=== PATIENT | male | born 1955 | race Caucasian/White ===

== ENCOUNTER 2016-09-27 13:55 | Emergency (ER) | payer MEDICARE, OTHER ==
[~2016-09-27] VITALS: Ht 177.8 cm; Wt 83.9 kg
[~2016-09-27 13:55] MED LIST: ALPRAZOLAM0.5 MG PO; AMLODIPINE BESY10 MG PO; ASPIRIN EC325 MG PO; ASPIRIN325 MG PO; ASPIRIN81 MG PO; BISAC-EVAC10 MG PR; CAL-GEST200 MG PO; CARVEDILOL12.5 MG PO; CICLODAN6.6 ML TOP; CIPROFLOXACIN250 MG PO; CLINDAMYCIN HC300 MG PO; COUMADIN4 MG PO; DIAZEPAM5 MG PO; FORADIL1 INHALATI INH; GABAPENTIN100 MG PO; HYDROCODON-ACE1 EA10 PO; LANTUS100 UNITS/ SUB-Q; LISINOPRIL10 MG PO; LOPERAMIDE2 MG PO; METOCLOPRAMIDE10 MG PO; METOPROLOL SUCC25 MG PO; METOPROLOL SUCC50 MG PO; MILK OF MA400 MG/5 M PO; NEPHRO-VITE RX1 TAB PO; NICODERM CQ1 EAC2 TD; NIFEDICAL XL30 MG PO; OMEPRAZOLE20 MG PO; PERFOROMIS20 MCG/2 M INH; PHOSLO667 MG PO; RENA-VITE RX T1 EACH PO; RENAGEL800 MG PO; RENVELA800 MG PO; SENNA PLUS TAB1 EACH PO; SENSIPAR30 MG PO; TAMIFLU75 MG PO; TRAZODONE HCL50 MG PO; TYLENOL325 MG PO; VALIUM5 MG PO; VITAMIN D400 UNI4 PO; VITAMIN D5000 UNIT PO
[2016-12-12] MEDS ORDERED: NEURONTIN300 MG PO (21:50)
[2016-12-12] MEDS ORDERED: GLUCAGON EMERGEN1 MG INJ (21:51)
[2016-12-12] MEDS ORDERED: MIRALAX17 GM PO (21:53)
[2016-12-12] MEDS ORDERED: CARVEDILOL12.5 MG PO ×2 (21:56→21:57)
== END 2016-09-27 15:14 | disposition home or self-care (01) ==
LOC: ED 13:55
DX: S51.012A Laceration without foreign body of left elbow, initial encounter (principal); I13.2 Hypertensive heart and chronic kidney disease with heart failure and with stage 5 chronic kidney disease, or end stage renal disease; E11.22 Type 2 diabetes mellitus with diabetic chronic kidney disease; N18.6 End stage renal disease; I50.9 Heart failure, unspecified; Z99.2 Dependence on renal dialysis; J44.9 Chronic obstructive pulmonary disease, unspecified; Z86.14 Personal history of Methicillin resistant Staphylococcus aureus infection; Z86.73 Personal history of transient ischemic attack (TIA), and cerebral infarction without residual deficits; Z88.0 Allergy status to penicillin; Z88.8 Allergy status to other drugs, medicaments and biological substances; Z79.899 Other long term (current) drug therapy; Z79.01 Long term (current) use of anticoagulants; Z79.82 Long term (current) use of aspirin; Z79.4 Long term (current) use of insulin; W22.8XXA Striking against or struck by other objects, initial encounter
CPT/HCPCS: 73080; 90471; 90715; 99283

== ENCOUNTER → 2016-12-12 | Emergency (ER) | payer MEDICARE, OTHER ==
[~2016-12-12] VITALS: Ht 177.8 cm; Wt 83.9 kg
[~2016-12-12] MED LIST changes: +GLUCAGON EMERGEN1 MG INJ; +MIRALAX17 GM PO; +NEURONTIN300 MG PO
== END ==
LOC: ED 20:19
DX: D17.21 Benign lipomatous neoplasm of skin and subcutaneous tissue of right arm (principal); E11.9 Type 2 diabetes mellitus without complications; I11.0 Hypertensive heart disease with heart failure; I50.9 Heart failure, unspecified; J44.9 Chronic obstructive pulmonary disease, unspecified; Z86.73 Personal history of transient ischemic attack (TIA), and cerebral infarction without residual deficits; Z86.14 Personal history of Methicillin resistant Staphylococcus aureus infection; Z87.891 Personal history of nicotine dependence; Z88.0 Allergy status to penicillin; Z88.8 Allergy status to other drugs, medicaments and biological substances; Z79.899 Other long term (current) drug therapy; Z79.4 Long term (current) use of insulin; Z79.01 Long term (current) use of anticoagulants
CPT/HCPCS: 73090; 99283

== ENCOUNTER 2017-01-07 21:10 | Emergency (ER) | payer MEDICARE, OTHER ==
[~2017-01-07] VITALS: Ht 177.8 cm; Wt 83.9 kg
== END 2017-01-07 23:30 | disposition home or self-care (01) ==
LOC: ED 21:10
DX: T82.838A Hemorrhage due to vascular prosthetic devices, implants and grafts, initial encounter (principal); I11.0 Hypertensive heart disease with heart failure; I50.9 Heart failure, unspecified; E11.9 Type 2 diabetes mellitus without complications; Z86.73 Personal history of transient ischemic attack (TIA), and cerebral infarction without residual deficits; Z86.14 Personal history of Methicillin resistant Staphylococcus aureus infection; Z99.81 Dependence on supplemental oxygen; Z98.890 Other specified postprocedural states; Z88.0 Allergy status to penicillin; Z88.8 Allergy status to other drugs, medicaments and biological substances; Z79.4 Long term (current) use of insulin; Z79.899 Other long term (current) drug therapy
CPT/HCPCS: 85025; 85610; 99283

== ENCOUNTER 2017-01-29 14:04 | Emergency (ER) | payer MEDICARE, OTHER ==
[~2017-01-29] VITALS: Ht 177.8 cm; Wt 83.9 kg
== END 2017-01-29 17:45 ==
LOC: ED 14:04
DX: T82.838A Hemorrhage due to vascular prosthetic devices, implants and grafts, initial encounter (principal); I13.2 Hypertensive heart and chronic kidney disease with heart failure and with stage 5 chronic kidney disease, or end stage renal disease; E11.22 Type 2 diabetes mellitus with diabetic chronic kidney disease; N18.6 End stage renal disease; I50.9 Heart failure, unspecified; J44.9 Chronic obstructive pulmonary disease, unspecified; Z86.73 Personal history of transient ischemic attack (TIA), and cerebral infarction without residual deficits; Z87.891 Personal history of nicotine dependence; Z88.0 Allergy status to penicillin; Z88.8 Allergy status to other drugs, medicaments and biological substances; Z79.899 Other long term (current) drug therapy; Z79.82 Long term (current) use of aspirin; Z79.01 Long term (current) use of anticoagulants; Z79.4 Long term (current) use of insulin
CPT/HCPCS: 85025; 99285

== ENCOUNTER 2017-02-08 14:12 | Emergency (ER) | payer MEDICARE, OTHER ==
[~2017-02-08] VITALS: Ht 177.8 cm; Wt 83.9 kg
== END 2017-02-08 15:52 | disposition home or self-care (01) ==
LOC: ED 14:12
DX: T82.838A Hemorrhage due to vascular prosthetic devices, implants and grafts, initial encounter (principal); I13.2 Hypertensive heart and chronic kidney disease with heart failure and with stage 5 chronic kidney disease, or end stage renal disease; E11.22 Type 2 diabetes mellitus with diabetic chronic kidney disease; N18.6 End stage renal disease; I50.9 Heart failure, unspecified; J44.9 Chronic obstructive pulmonary disease, unspecified; Z86.14 Personal history of Methicillin resistant Staphylococcus aureus infection; Z87.891 Personal history of nicotine dependence; Z90.89 Acquired absence of other organs; Z88.0 Allergy status to penicillin; Z88.8 Allergy status to other drugs, medicaments and biological substances; Z79.899 Other long term (current) drug therapy; Z79.4 Long term (current) use of insulin; Z79.01 Long term (current) use of anticoagulants; Z86.73 Personal history of transient ischemic attack (TIA), and cerebral infarction without residual deficits
CPT/HCPCS: 99282

== ENCOUNTER 2017-02-08 17:29 | Emergency (ER) | payer MEDICARE, OTHER ==
[~2017-02-08] VITALS: Ht 177.8 cm; Wt 83.9 kg
--- NOTE | 2017-02-08 18:47 | NUR ---
WAS CALLED IN FOR CODE BLUE. PT DID HAVE FAMILY PRESENT. I INFORMED THE FAMILY OF WHAT WAS GOING ON UNTIL THE PT WAS STABILIZED. FAMILY WAS THEN ALLOWED TO COME BACK INTO THE TRAUMA ROOM WITHT HE PT. PT'S FAMILY IS REQUESTING THAT THE PT BE TRANSFERED TO [facility] FOR CARE MOST OF HIS CARE IS TAKEN CARE OF THERE.
--- NOTE | 2017-02-09 13:22 | EKG ---
[facility] [address] [facility] [place] [address] Signed Normal sinus rhythm Normal ECG No previous ECGs available Confirmed by DILIP ROMERO MD ([id number]) on 02/09/2017 1:21:51 PM Electronically Signed By: DILIP ROMERO MD 02/09/17 1322 PATIENT NAME: TALISHA DING Electrocardiogram DATE OF : 55 PHYSICIAN: DILIP ROMERO MD REPORT #: [id number] REPORT IS CONFIDENTIAL AND NOT TO BE RELEASED WITHOUT AUTHORIZATION
== END 2017-02-08 21:07 | disposition short-term general hospital (02) ==
LOC: ED 17:29
PROC: 30230N1 Transfusion of Nonautologous Red Blood Cells into Peripheral Vein, Open Approach (ICD-10-PCS; principal; 2017-02-08)
DX: I46.9 Cardiac arrest, cause unspecified (principal); T82.838A Hemorrhage due to vascular prosthetic devices, implants and grafts, initial encounter; R79.89 Other specified abnormal findings of blood chemistry; I13.2 Hypertensive heart and chronic kidney disease with heart failure and with stage 5 chronic kidney disease, or end stage renal disease; E11.22 Type 2 diabetes mellitus with diabetic chronic kidney disease; N18.6 End stage renal disease; I50.9 Heart failure, unspecified; Z86.73 Personal history of transient ischemic attack (TIA), and cerebral infarction without residual deficits; Z86.14 Personal history of Methicillin resistant Staphylococcus aureus infection; Z87.891 Personal history of nicotine dependence; Z90.89 Acquired absence of other organs; Z88.0 Allergy status to penicillin; Z88.8 Allergy status to other drugs, medicaments and biological substances; Z79.899 Other long term (current) drug therapy; Z79.4 Long term (current) use of insulin; Z79.01 Long term (current) use of anticoagulants
CPT/HCPCS: 36430; 36600; 70450; 71010; 80053; 81001; 82803; 83605; 84484; 85025; 86850; 86900; 86901; 86920; 87088; 93005; 93010; 94002; 96361; 96374; 96376; 99291; G0390; J7030; P9016